=== PATIENT | male | born 1940 | race Caucasian/White ===

== ENCOUNTER → 2018-08-21 17:08 | Outpatient (CLI) | payer MEDICARE ==
[~2018-08-21 17:08] MED LIST: BAYER CHEWABLE81 MG PO; BYSTOLIC20 MG PO; CIPRO500 MG PO; CRESTOR40 MG PO; ENTRESTO 97 MG1 EACH PO; FLOMAX0.4 MG PO; FUROSEMIDE20 MG PO; HYDROCODON-ACE1 EAC7 PO; LANTUS INSULIN10 ML SC; LEVAQUIN750 MG PO; NEURONTIN 300300 MG PO; OMEPRAZOLE20 M1 PO; PLAVIX75 MG PO; TORSEMIDE20 MG PO
[2018-09-01 13:06] VITALS: BMI 34.1
== END | disposition home or self-care (01) ==
LOC: D.LABREF 17:08
DX: L02.611 Cutaneous abscess of right foot (principal); L03.115 Cellulitis of right lower limb

== ENCOUNTER 2018-08-28 15:43 | Observation (INO) | payer MEDICARE, OTHER ==
[~2018-08-28] VITALS: Ht 185.4 cm; Wt 119.1 kg
[2018-08-28] MEDS ORDERED: ENTRESTO 97 MG1 EACH PO (16:44)
[2018-08-28] MEDS ORDERED: TORSEMIDE20 MG PO (16:45)
[2018-08-28] MEDS ORDERED: OMEPRAZOLE20 M1 PO (16:45)
[2018-08-28] MEDS ORDERED: FLOMAX0.4 MG PO (16:46)
[2018-08-28] MEDS ORDERED: FUROSEMIDE20 MG PO (16:46)
[2018-08-28] MEDS ORDERED: BYSTOLIC20 MG PO (16:47)
[2018-08-28] MEDS ORDERED: PLAVIX75 MG PO (16:49)
[2018-08-28] MEDS ORDERED: LANTUS INSULIN10 ML SC (16:49)
[2018-08-28] MEDS ORDERED: BAYER CHEWABLE81 MG PO (16:49)
[2018-08-28] MEDS ORDERED: CRESTOR40 MG PO (16:50)
[2018-08-28] MEDS ORDERED: NEURONTIN 300300 MG PO (16:51)
[2018-08-28 17:02] VITALS: BP 165/64; Ht 185.4 cm; Wt 119.1 kg
[2018-08-28 18:03] LABS: BASOPHILS 0.6 % (0-2); EOSINOPHILS 1.5 % (0-7); HEMATOCRIT 30.8 % (42.0-54.0); HEMOGLOBIN 9.9 g/dL (13.5-17.5); IMMATURE GRANULOCYTES 0.2 % (0-5); MCH 27.3 pg (26.0-34.0); MCHC 32.1 g/dL (31.0-37.0); MCV 85.1 fL (80.0-100.0); NEUTROPHILS 73.7 % (40-80); PLATELET COUNT 159 10x3/uL (130-400); RBC 3.62 10x6/uL (4.20-6.10); RDW 15.4 % (11.5-14.5); WBC 6.5 10x3/uL (4.8-10.8)
[2018-08-28 18:54] LABS: ANION GAP 20.6 mmol/L (8-16); CALCIUM 8.7 mg/dL (8.5-10.1); CARBON DIOXIDE 17.5 mmol/L (21.0-32.0); CREATININE - SERUM 3.6 mg/dL (0.6-1.3)
[2018-08-28 19:01] LABS: POTASSIUM - SERUM 6.1 mmol/L (3.5-5.1)
--- NOTE | 2018-08-28 19:04 | NUR ---
PT DISCHARGE INSTRUCTIONS PROVIDED FOR PT AND FAMILY, ALLOWED TIME FOR QUESTIONS, QUESTIONS ANSWERED. DISCHARGE EDUCATION PROVIDED ON DISCHARGE. LAB CALLED WITH A CRITICAL POTASSIUM OF 6.9. INSTRUCTED TO REDRAW DUE TO THE PATIENT NOT EVEN TAKING POTASSIUM. IV REMOVED, TIP INTACT. PT AWAITTING REDRAW TO SEND HOME. EKG COMPLETE, CHEST X-RAY COMPLETE.
== END 2018-08-28 19:25 | disposition home or self-care (01) ==
LOC: D.MS 15:43 → OBSVTIME 15:44 → D.MS 19:25
PROVIDERS: ADMIT Podiatrist Foot & Ankle Surgery
DX: L08.9 Local infection of the skin and subcutaneous tissue, unspecified (principal); E11.9 Type 2 diabetes mellitus without complications

== ENCOUNTER 2018-08-31 05:12 | Inpatient (IN) | payer MEDICARE, OTHER ==
[~2018-08-31] VITALS: Ht 185.4 cm; Wt 117.5 kg
[2018-08-31] VITALS (10 sets, daily range): BP systolic 137–168; BP diastolic 59–79; BMI 34.2
[~2018-08-31 05:12] MED LIST changes: -CIPRO500 MG PO; -HYDROCODON-ACE1 EAC7 PO; -LEVAQUIN750 MG PO
[2018-08-31] MEDS ORDERED: CIPRO500 MG PO (06:58)
[2018-08-31 08:11] LABS: ANION GAP 18.9 mmol/L (8-16); CALCIUM 8.7 mg/dL (8.5-10.1); CARBON DIOXIDE 18.9 mmol/L (21.0-32.0); CREATININE - SERUM 2.6 mg/dL (0.6-1.3); POTASSIUM - SERUM 4.8 mmol/L (3.5-5.1)
--- NOTE | 2018-08-31 11:21 | NUR ---
RESTING QUIETLY WITH FAMILY AT BEDSIDE. DRESSING NOTED TO RIGHT FOOT WITH NET STOCKINGNET IN PLACE. CLEAN AND DRY DRESSING NOTED. NO COMPLAINTS AT PRESENT. CALL LIGHT IN REACH
--- NOTE | 2018-08-31 14:16 | NUR ---
PT CONTINUES TO REST WITHOUT COMFPLAINTS OF PAIN OR DISCOMFORT. REQUESTED WATER AT BEDSIDE AND RECIEVED. DRESSING REMAINS CLEAN DRY AND INTACT. CALL LIGHT IN REACH
--- NOTE | 2018-08-31 17:24 | NUR ---
UTILITY SYSTEM OPERATOR COMPLETE. NO SIGNS OF DISTRESS NOTED. CL IN REACH
--- NOTE | 2018-08-31 18:11 | NUR ---
PT REMAINS FREE OF PAIN OR DISCOMFORT. DRESSING REMAINS CLEAN AND DRY TO RIGHT FOOT. CALL LIGHT IN REACH. WALKER AND BSC TO ROOM FOR USE IF NEEDED.
--- NOTE | 2018-08-31 22:32 | NUR ---
THE PATIENT APPEARS COMFORTABLE WITH NO QUESTIONS OR CONCERNS AT THIS TIME. CPAP RUNNING WITHOUT ISSUE.
[2018-09-01] VITALS: BP 157/41
[2018-09-01 05:00] VITALS: BP 119/56
[2018-09-01 06:10] LABS: BASOPHILS 0.7 % (0-2); EOSINOPHILS 2.4 % (0-7); HEMATOCRIT 28.3 % (42.0-54.0); IMMATURE GRANULOCYTES 0.2 % (0-5); LYMPHOCYTES 22.1 % (15-50); MCH 27.1 pg (26.0-34.0); MCHC 31.8 g/dL (31.0-37.0); MCV 85.2 fL (80.0-100.0); MEAN PLATELET VOLUME 11.3 fL (7.4-10.4); MONOCYTES 9.2 % (2-11); NEUTROPHILS 65.4 % (40-80); PLATELET COUNT 167 10x3/uL (130-400); RBC 3.32 10x6/uL (4.20-6.10); WBC 5.8 10x3/uL (4.8-10.8)
[2018-09-01 06:29] LABS: ANION GAP 15.7 mmol/L (8-16); CALCIUM 8.4 mg/dL (8.5-10.1); CREATININE - SERUM 2.5 mg/dL (0.6-1.3); POTASSIUM - SERUM 4.7 mmol/L (3.5-5.1)
[2018-09-01 08:27] VITALS: BP 142/61
[2018-09-01 13:06] VITALS: Ht 185.4 cm; Wt 117.5 kg
[2018-09-01 15:07] VITALS: BP 126/66
[2018-09-01 20:00] VITALS: BP 153/62
--- NOTE | 2018-09-01 22:46 | NUR ---
RESTING IN BED NO S/S OF DISTRESS RESPRATION EVEN AND UNLABORED CALL LIGHT IN REACH. CHECKED OFTEN FOR NEEDS AND SAFETY,
[2018-09-02 04:00] VITALS: BP 141/46
[2018-09-02 06:10] LABS: BASOPHILS 0.4 % (0-2); EOSINOPHILS 2.3 % (0-7); HEMATOCRIT 27.9 % (42.0-54.0); HEMOGLOBIN 8.9 g/dL (13.5-17.5); LYMPHOCYTES 22.4 % (15-50); MCH 27.2 pg (26.0-34.0); MCHC 31.9 g/dL (31.0-37.0); MCV 85.3 fL (80.0-100.0); MEAN PLATELET VOLUME 11.3 fL (7.4-10.4); NEUTROPHILS 63.9 % (40-80); PLATELET COUNT 156 10x3/uL (130-400); RBC 3.27 10x6/uL (4.20-6.10); RDW 16.2 % (11.5-14.5); WBC 5.2 10x3/uL (4.8-10.8)
[2018-09-02 06:26] LABS: ANION GAP 16.6 mmol/L (8-16); CALCIUM 8.4 mg/dL (8.5-10.1); CARBON DIOXIDE 20.9 mmol/L (21.0-32.0); CREATININE - SERUM 2.3 mg/dL (0.6-1.3); POTASSIUM - SERUM 4.5 mmol/L (3.5-5.1)
[2018-09-02 08:00] VITALS: BP 149/59
[2018-09-02 12:00] VITALS: BP 163/76
--- NOTE | 2018-09-02 17:02 | MORECARE ---
CASE MANAGEMENT DISCHARGE SUMMARY PATIENT: DANYELL REAGAN UNIT: [id number] ADM DATE: 08/31/18 AGE: 78 : 42 SEX: M ROOM/BED: D.2230 AUTHOR: JAVIER,DOC PHYSICIAN: REFERRING PHYSICIAN: JAUN SOLANO DPM DATE OF SERVICE: 09/02/18 Discharge Plan Patient Name: DANYELL REAGAN Facility: [facility]:[place] : 1940 Planned Disposition: Home Anticipated Discharge Date: 09/03/18 Discharge Date: Expected LOS: 3 Initial Reviewer: [email or web address] Initial Review Date: 09/02/2018 Generated: 09/02/18 6:02 pm Comments DCP- Discharge Planning Updated by [email or web address]: Nancy Ramirez on 09/02/18 4:[address] Patient Name: DANYELL REAGAN Admission Status: Elective Accout number: [id number] Admission Date: 08-31-2018 : 1940 Admission Diagnosis: Attending: JAUN SOLANO Current LOS: 2 Anticipated DC Date: 09-03-2018 Planned Disposition: Home Primary Insurance: MEDICARE A & B Discharge Planning Comments: CM met with patient to complete initial dc planning assessment. CM educated patient on the CM role and verbal consent given by patient to complete assessment. Patient lives with his . At discharge patient plans to return and feels this is a safe discharge. CM discussed availability of home health, rehab services, and medical equipment. Patient denied known discharge needs at this time. He declines home health at this time. CM will continue to follow and will assist as needed with dc plans/needs. Computer Lab Para Professional: Nancy Ramirez DCPIA - Discharge Planning Initial Assessment Updated by [email or web address]: Nancy Ramirez on 09/02/18 4:58 pm * Is the patient Alert and Oriented? Yes * How many steps to enter\exit or inside your home? 0/1 flight * PCP Dr. Ryan Zafar * Pharmacy [facility] in [place] * Preadmission Environment Home with Family * ADLs Independent * Equipment CPAP Other Power Chair or Electric Scooter * Other Equipment Chair lift * List name and contact numbers for known caregivers / representatives who currently or will assist patient after discharge: Kimberly rodriguez - [phone] * Verbal permission to speak to the caregivers and representatives has been obtained from the patient. Yes * Community resources currently utilized None * Additional services required to return to the preadmission environment? No * Can the patient safely return to the preadmission environment? Yes * Has this patient been hospitalized within the prior 30 days at any hospital? No Patient Name: DANYELL REAGAN Page [id number] at 1702 All edits/amendments must be made on the electronic document DICTATION DATE: 09/02/181701 EDUCATIONAL RESOURCE COORDINATOR: NATHAN 09/02/181701 RPT#: [id number] DC DATE: STATUS: ADM IN [facility] [address] [place] [address] END OF REPORT
[2018-09-02 17:44] VITALS: BP 149/59
[2018-09-02 17:53] VITALS: BP 109/67
--- NOTE | 2018-09-02 20:36 | NUR ---
REC'D. IN BED LYING ON LEFT SIDE.EYES CLOSED RESP. DEEP AND EVEN AGUILERA PATENT AND DRAINING CONCENTRATED DAVID COLORED URINE.DRSG DRY AND INTACT RIGHT FOOT.UP ON PILLOW
[2018-09-03] VITALS (11 sets, daily range): BP systolic 129–177; BP diastolic 58–92
--- NOTE | 2018-09-03 03:50 | NUR ---
RESTING QUITELY IN BED RESP UNLABORED NO APPARENT DISTRESS CALL LIGHT IN REACH
[2018-09-03 05:18] LABS: BASOPHILS 0.4 % (0-2); EOSINOPHILS 2.2 % (0-7); HEMATOCRIT 30.2 % (42.0-54.0); HEMOGLOBIN 9.6 g/dL (13.5-17.5); IMMATURE GRANULOCYTES 0.2 % (0-5); MCH 27.1 pg (26.0-34.0); MCHC 31.8 g/dL (31.0-37.0); MCV 85.3 fL (80.0-100.0); MEAN PLATELET VOLUME 11.5 fL (7.4-10.4); MONOCYTES 11.1 % (2-11); NEUTROPHILS 68.1 % (40-80); PLATELET COUNT 151 10x3/uL (130-400); RBC 3.54 10x6/uL (4.20-6.10); RDW 15.9 % (11.5-14.5); WBC 5.5 10x3/uL (4.8-10.8)
[2018-09-03 06:20] LABS: ANION GAP 19.8 mmol/L (8-16); CALCIUM 8.4 mg/dL (8.5-10.1); CARBON DIOXIDE 17.8 mmol/L (21.0-32.0); CREATININE - SERUM 2.5 mg/dL (0.6-1.3); POTASSIUM - SERUM 4.6 mmol/L (3.5-5.1)
--- NOTE | 2018-09-03 12:14 | NUR ---
NUTRITION F/U PT CURRENTLY NPO FOR PROCEDURE. WILL PROVIDE DIABETIC DIET WHEN RESUMED. MONITOR PO INTAKE. RD FOLLOWING
--- NOTE | 2018-09-03 15:38 | NUR ---
DR. BAEZ INJECTED MARCAINE INTO RIGHT FOOT TO ADDRESS PATIENT'S FOOT PAIN AFTER PATIENT ARRIVED TO PACU. PATIENT TOLERATED WELL. PATIENT NOW IN LESS PAIN.
[2018-09-03] MEDS ORDERED: HYDROCODON-ACE1 EAC7 PO ×2 (16:09→16:58)
--- NOTE | 2018-09-03 16:48 | MORECARE ---
CASE MANAGEMENT DISCHARGE SUMMARY PATIENT: DANYELL REAGAN UNIT: [id number] ADM DATE: 08/31/18 AGE: 78 : 42 SEX: M ROOM/BED: D.2230 AUTHOR: JAVIERDOC PHYSICIAN: REFERRING PHYSICIAN: JAUN SOLANO DPM DATE OF SERVICE: 09/03/18 Discharge Plan Patient Name: DANYELL REAGAN Facility: [facility]:[place] : 1940 Planned Disposition: Home Anticipated Discharge Date: 09/03/18 Discharge Date: Expected LOS: 3 Initial Reviewer: [email or web address] Initial Review Date: 09/02/2018 Generated: 09/03/18 5:48 pm Comments DCP- Discharge Planning Updated by [email or web address]: Kanika Lang on 09/03/18 3:[address] Patient Name: DANYELL REAGAN Encounter No: [id number] : 1940 Primary Insurance: MEDICARE A & B Anticipated DC Date: 09-03-2018 Planned Disposition: Home External Planned Provider: : DCP follow-up note: Patient and family in agreement with discharge plan. IMM given and explained. No changes to plan. Case management will follow and assist as needed. Kanika Lang DCP- Discharge Planning Updated by [email or web address]: Nancy Ramirez on 09/02/18 4:[address] Patient Name: DANYELL REAGAN Admission Status: Elective Accout number: [id number] Admission Date: 08-31-2018 : 1940 Admission Diagnosis: Attending: JAUN SOLANO Current LOS: 2 Anticipated DC Date: 09-03-2018 Planned Disposition: Home Primary Insurance: MEDICARE A & B Discharge Planning Comments: CM met with patient to complete initial dc planning assessment. CM educated patient on the CM role and verbal consent given by patient to complete assessment. Patient lives with his . At discharge patient plans to return and feels this is a safe discharge. CM discussed availability of home health, rehab services, and medical equipment. Patient denied known discharge needs at this time. He declines home health at this time. CM will continue to follow and will assist as needed with dc plans/needs. Lead Technologist In Cytogenetics: Nancy Ramirez DCPIA - Discharge Planning Initial Assessment Updated by [email or web address]: Nancy James on 09/02/18 4:58 pm * Is the patient Alert and Oriented? Yes * How many steps to enter\exit or inside your home? 0/1 flight * PCP Dr. Ryan Lanza - [place] * Pharmacy [facility] in [place] * Preadmission Environment Home with Family * ADLs Independent * Equipment CPAP Other Power Chair or Electric Scooter * Other Equipment Chair lift * List name and contact numbers for known caregivers / representatives who currently or will assist patient after discharge: Kimberly rodriguez - [phone] * Verbal permission to speak to the caregivers and representatives has been obtained from the patient. Yes * Community resources currently utilized None * Additional services required to return to the preadmission environment? No * Can the patient safely return to the preadmission environment? Yes * Has this patient been hospitalized within the prior 30 days at any hospital? No Coverage Notice Reviewer: [email or web address] Chapin Lang Notice Issued Date-Time: 09/03/2018 16:45 Notice Type: IM Discharge Notice Notice Delivered To: Patient Relationship to Patient: Assistant Counsel Name: Delivery Method: HAND - Hand Delivered Sarah Days: Prior Verbal Notification: Recipient Understood Notice: Yes Recipient Signature: Yes Med Rec Note Co-signed by Attending: Coverage Notice Comment: Last DP export: 09/02/18 4:02 p Patient Name: DANYELL REAGAN Page [id number] at 1648 All edits/amendments must be made on the electronic document DICTATION DATE: 09/03/181646 SUMMER COUNSELOR: NATHAN 09/03/181646 RPT#: [id number] DC DATE: STATUS: ADM IN [facility] [address] [place] [address] END OF REPORT
--- NOTE | 2018-09-03 19:00 | NUR ---
BEDSIDE REPORT RECEIVED AND CARE OF PT ASSUMED. PT SITTING ON SIDE OF BED WITH CPAP ON AT THIS TIME. NO IV SITED. WILL MONITOR FOR NEEDS.
--- NOTE | 2018-09-03 20:45 | NUR ---
WARMED UP PT'S DINNER, PROVIDED MILK AND ICED COLA, PER REQUES. PT ATE 100% OF MEAL. GAVE SYLVESTER CRACKERS FOR SNACK LATER.
--- NOTE | 2018-09-03 21:40 | NUR ---
SURGEON CALLED TO CHECK ON PT, AND PLACED ORDER FOR NORCO PRN FOR PAIN.
--- NOTE | 2018-09-03 21:47 | NUR ---
HS MEDICATIONS GIVEN TO INCLUDE NORCO PO PER REQUEST FOR INCISIONAL PAIN. FSBS 306 THIS CHECK REQUIRING COVERAGTE WITH 8 UNITS OF INSULIN PER SLIDING SCALE. WILL CONTINUE TO MONITOR FOR NEEDS.
[2018-09-04] VITALS: BP 145/50
[2018-09-04 04:00] VITALS: BP 158/68
[2018-09-04 07:12] LABS: HEMATOCRIT 30.6 % (42.0-54.0); HEMOGLOBIN 9.8 g/dL (13.5-17.5); LYMPHOCYTES 12.6 % (15-50); MCH 27.5 pg (26.0-34.0); MEAN PLATELET VOLUME 11.3 fL (7.4-10.4); NEUTROPHILS 75.3 % (40-80); PLATELET COUNT 130 10x3/uL (130-400); RBC 3.56 10x6/uL (4.20-6.10); RDW 15.9 % (11.5-14.5); WBC 5.5 10x3/uL (4.8-10.8)
[2018-09-04 07:17] LABS: ALBUMIN 2.8 g/dL (3.4-5.0); ANION GAP 16.7 mmol/L (8-16); BILIRUBIN - TOTAL 0.53 mg/dL (0.2-1.3); CALCIUM 8.3 mg/dL (8.5-10.1); CARBON DIOXIDE 20.4 mmol/L (21.0-32.0); CREATININE - SERUM 2.6 mg/dL (0.6-1.3); POTASSIUM - SERUM 5.1 mmol/L (3.5-5.1); PROTEIN - SERUM 6.2 g/dL (6.4-8.2)
--- NOTE | 2018-09-04 08:50 | NUR ---
DISCUSSED DISCHARGE, MEDICATION, FOLLOW-UP AND WOUND CARE INSTRUCTIONS. VERBALIZED UNDERSTANDING. DISCUSSED DR. SOLANO[facility]S [facility] MED ORDER. NO IV TO REMOVE. PATIENT AWAITNG RIDE FROM [place], [place]. HE AGREED TO CALL WHEN RIDE ARRIVES FOR WHEELCHAIR TO DISCHARGE.
[2018-09-04] MEDS ORDERED: LEVAQUIN750 MG PO (09:02)
--- NOTE | 2018-09-04 11:30 | NUR ---
PATIENT DISCHARGED HOME VIA WHEELCHAIR BY AMERICAN STUDIES PROFESSOR ACCOMPANIED BY FAMILY. ALL BELONGINGS SENT WITH PATIENT.
--- NOTE | 2018-09-04 13:50 | MORECARE ---
CASE MANAGEMENT DISCHARGE SUMMARY PATIENT: DANYELL REAGAN UNIT: [id number] ADM DATE: 08/31/18 AGE: 78 : 42 SEX: M ROOM/BED: D.2230 AUTHOR: JAVIERDOC PHYSICIAN: REFERRING PHYSICIAN: JAUN SOLANO DPM DATE OF SERVICE: 09/04/18 Discharge Plan Patient Name: DANYELL REAGAN Facility: [facility]:[place] : 1940 Planned Disposition: Home Anticipated Discharge Date: 09/03/18 Discharge Date: 09/04/2018 Expected LOS: 3 Initial Reviewer: [email or web address] Initial Review Date: 09/02/2018 Generated: 09/04/18 2:50 pm Comments DCP- Discharge Planning Updated by [email or web address]: Kanika Lang on 09/03/18 3:[address] Patient Name: DANYELL REAGAN Encounter No: [id number] : 1940 Primary Insurance: MEDICARE A & B Anticipated DC Date: 09-03-2018 Planned Disposition: Home External Planned Provider: : DCP follow-up note: Patient and family in agreement with discharge plan. IMM given and explained. No changes to plan. Case management will follow and assist as needed. Kanika Lang DCP- Discharge Planning Updated by [email or web address]: Nancy Ramirez on 09/02/18 4:[address] Patient Name: DANYELL REAGAN Admission Status: Elective Accout number: [id number] Admission Date: 08-31-2018 : 1940 Admission Diagnosis: Attending: JAUN SOLANO Current LOS: 2 Anticipated DC Date: 09-03-2018 Planned Disposition: Home Primary Insurance: MEDICARE A & B Discharge Planning Comments: CM met with patient to complete initial dc planning assessment. CM educated patient on the CM role and verbal consent given by patient to complete assessment. Patient lives with his . At discharge patient plans to return and feels this is a safe discharge. CM discussed availability of home health, rehab services, and medical equipment. Patient denied known discharge needs at this time. He declines home health at this time. CM will continue to follow and will assist as needed with dc plans/needs. Buyer Tobacco Head: Nancy Ramirez DCPIA - Discharge Planning Initial Assessment Updated by [email or web address]: Nancy Ramirez on 09/02/18 4:58 pm * Is the patient Alert and Oriented? Yes * How many steps to enter\exit or inside your home? 0/1 flight * PCP Dr. Ryan Lanza - [place] * Pharmacy [facility] in [place] * Preadmission Environment Home with Family * ADLs Independent * Equipment CPAP Other Power Chair or Electric Scooter * Other Equipment Chair lift * List name and contact numbers for known caregivers / representatives who currently or will assist patient after discharge: Kimberly rodriguez - [phone] * Verbal permission to speak to the caregivers and representatives has been obtained from the patient. Yes * Community resources currently utilized None * Additional services required to return to the preadmission environment? No * Can the patient safely return to the preadmission environment? Yes * Has this patient been hospitalized within the prior 30 days at any hospital? No Coverage Notice Reviewer: [id number] Chapin Lang Notice Issued Date-Time: 09/03/2018 16:45 Notice Type: IM Discharge Notice Notice Delivered To: Patient Relationship to Patient: Digital Design Engineer Name: Delivery Method: HAND - Hand Delivered Sarah Days: Prior Verbal Notification: Recipient Understood Notice: Yes Recipient Signature: Yes Med Rec Note Co-signed by Attending: Coverage Notice Comment: Last DP export: 09/03/18 3:48 p Patient Name: DANYELL REAGAN Page [phone] at 1350 All edits/amendments must be made on the electronic document DICTATION DATE: 09/04/18 1349 SHINGLE SAWYER: NATHAN 09/04/18 1349 RPT#: [id number] DC DATE:09/04/18 STATUS: DIS IN [facility] [address] [place] [address] END OF REPORT
== END 2018-09-04 11:40 | disposition home or self-care (01) | DRG 988 ==
LOC: D.OPS 05:12 → D.MS 05:12 → D.OPS 07:00 → D.MS 10:27 → D.OPS 10:28 → D.MS 09-04 11:40
PROVIDERS: Anesthesiology; Family Medicine; ADMIT Podiatrist Foot & Ankle Surgery
PROC: 0H9MXZZ Drainage of Right Foot Skin, External Approach (ICD-10-PCS; 2018-08-31)
PROC: 0J9Q0ZZ Drainage of Right Foot Subcutaneous Tissue and Fascia, Open Approach (ICD-10-PCS; principal; 2018-08-31 07:00)
PROC: 0J9Q0ZZ Drainage of Right Foot Subcutaneous Tissue and Fascia, Open Approach (ICD-10-PCS; 2018-09-03)
PROC: 0HBMXZZ Excision of Right Foot Skin, External Approach (ICD-10-PCS; 2018-09-03)
DX: E11.628 Type 2 diabetes mellitus with other skin complications (principal); E11.52 Type 2 diabetes mellitus with diabetic peripheral angiopathy with gangrene; I96 Gangrene, not elsewhere classified; L03.115 Cellulitis of right lower limb; I10 Essential (primary) hypertension; I11.0 Hypertensive heart disease with heart failure; I50.9 Heart failure, unspecified; I25.10 Atherosclerotic heart disease of native coronary artery without angina pectoris; E11.9 Type 2 diabetes mellitus without complications; J44.9 Chronic obstructive pulmonary disease, unspecified

== ENCOUNTER 2019-02-17 08:23 | Day surgery (SDC) | payer MEDICARE, OTHER ==
[~2019-02-17] VITALS: Ht 185.4 cm; Wt 113.4 kg
--- NOTE | ~2019-02-17 | OP ---
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 PROCEDURE: Partial first met head resection, right foot. ANESTHESIA: 3 cc of local anesthetic and a V-block on the medial aspect of the right foot. No general anesthesia or sedation. HEMOSTASIS: None. PREOPERATIVE DETAILS: The patient was taken to the OR and placed on the operating table. The right extremity was then prepped and draped in the usual aseptic technique followed by procedure. Partial first met head resection, right foot. A 15 blade was used to create a 3 cm linear incision over the dorsal medial aspect of the head of the first metatarsal. The incision was deepened down through subcutaneous tissue sharply. There was noted to be bleeding in the wound. Dissection was carried down to the first MPJ where a linear capsulotomy was performed. The head of the first metatarsal was delivered. A sagittal saw was used to resect approximately 5 mm of the medial aspect of the head of the first metatarsal. All rough areas were rongeured and make sure we are smoothed. This definitely reduced the enlargement on the head of the first metatarsal. The wound was flushed. The joint capsule was closed with 2-0 Vicryl, the subcutaneous tissue with 4-0 Rapide, and the skin was closed with 4-0 Rapide in a subcuticular technique followed by Dermabond. Adaptic, 4 x 4 and Conform were used to dress the wound followed by Coban. The patient tolerated the procedure well and left the OR with vital signs stable and vascular status at preoperative levels. The patient was transported to recovery per anesthesia in stable condition. TRANSINT:[id number] Voice Confirmation ID: [id number] DOCUMENT ID: [id number] SAUD WORTHINGTON DPM CC: [id number] DICTATION DATE: 02/17/19 1120 GLUE MOUNTER OPERATOR: 02/17/19 1151 [facility] [address] [place] [address]
[~2019-02-17 08:23] MED LIST changes: +CIPRO500 MG PO; +HYDROCODON-ACE1 EAC7 PO; -LANTUS INSULIN10 ML SC; +LANTUS SOL100 UNIT/1 SC; +LEVAQUIN750 MG PO; +NORVASC5 MG PO; +intuniv PO
[2019-02-17 08:56] LABS: HEMATOCRIT 38.8 % (42.0-54.0); HEMOGLOBIN 13.1 g/dL (13.5-17.5); MCH 27.6 pg (26.0-34.0); MCHC 33.8 g/dL (31.0-37.0); MCV 81.7 fL (80.0-100.0); RBC 4.75 10x6/uL (4.20-6.10); RDW 15.1 % (11.5-14.5); WBC 6.8 10x3/uL (4.8-10.8)
[2019-02-17 09:11] LABS: ANION GAP 13.8 mmol/L (8-16); CALCIUM 9.4 mg/dL (8.5-10.1); CARBON DIOXIDE 26.7 mmol/L (21.0-32.0); POTASSIUM - SERUM 4.5 mmol/L (3.5-5.1)
[2019-02-17 09:50] VITALS: BP 159/69; Ht 185.4 cm; Wt 113.4 kg
[2019-02-17 09:51] LABS: APTT 31.6 SECONDS (22.8-39.4); INR 1.06 (0.85-1.17); PROTIME 13.3 SECONDS (11.6-15.0)
[2019-02-17] MEDS ORDERED: OMEPRAZOLE20 M1 PO (10:04)
[2019-02-17] MEDS ORDERED: ENTRESTO 97 MG1 EACH PO (10:05)
--- NOTE | 2019-02-17 13:17 | NUR ---
1115-REC'D FROM RR.AWAKE AND ALERT WITHOUT COMPLAINTS. IV PATENT TO RIGHT HAND KVO. DRESSING TO RIGHT FOOT CDI. LIQUID TRAY TO ROOM. FAMILY AT BEDSIDE.CL IN EASY REACH.
--- NOTE | 2019-02-17 13:19 | NUR ---
1215-DISCHARGE CRITERIA MET.DISCONTINUED IV FROM RIGHT HAND WITH CATH INTACT.DISPOSED INTO SHARPS. POST OP SHOE PLACED TO LEFT FOOT. REVIEWED DISCHARGE INSTRUCTIONS WITHOUT QUESTIONS. ESCORTED OUT VIA W/C WITH FAMILY TO DRIVE HOME.
== END 2019-02-17 12:15 | disposition home or self-care (01) ==
LOC: D.OPS 08:23 → D.PAN 11:00 → D.OPS 11:00 → D.PAN 13:30
PROVIDERS: Anesthesiology; ATTEND Podiatrist
DX: G62.9 Polyneuropathy, unspecified (principal); L97.519 Non-pressure chronic ulcer of other part of right foot with unspecified severity; M89.371 Hypertrophy of bone, right ankle and foot; Z01.812 Encounter for preprocedural laboratory examination